=== PATIENT | female | born 1955 ===

== ENCOUNTER → 2017-09-18 | Emergency (ER) | payer OTHER ==
[~2017-09-18] VITALS: Ht 157.5 cm; Wt 63.5 kg
[~2017-09-18] MED LIST: CIPRO500 MG PO; DICY20TA PO; LOPERAMIDE2 MG PO; METFORMIN HCL500 MG; PROBIOTIC & AC1 EACH PO; TUSSAFED EX LI118 ML PO; ZANTAC300 MG PO; ZITHROMAX PO
== END | disposition home or self-care (01) ==
LOC: ER 21:28
DX: K52.9 Noninfective gastroenteritis and colitis, unspecified (principal); E86.0 Dehydration

== ENCOUNTER 2019-12-20 11:34 | Emergency (ER) | payer OTHER ==
[~2019-12-20] VITALS: Ht 152.4 cm; Wt 63.0 kg
== END 2019-12-20 16:31 | disposition home or self-care (01) ==
LOC: ER 11:34
DX: R20.0 Anesthesia of skin (principal)